=== PATIENT | male | born 1985 | race Caucasian/White ===

== ENCOUNTER 2020-10-07 11:08 | Emergency (ER) | payer OTHER ==
[2020-10-07] MEDS ORDERED: ASPIRIN 81 MG CHEWABLE TABLET ONE (13:04)
[2020-10-07 13:13] LABS: Absolute Lymphocytes (CBC) 1.4 K/uL (0.7-4.9); Basophils % 0.6 % (0-1.3); Hematocrit 43.8 % (39.6-49.0); Lymphocytes % 14.9 % (15.3-44.8); MPV 7.8 fL (7.6-11.3); RBC Red Blood Cell Count 5.07 M/uL (4.33-5.43)
[2020-10-07 13:17] LABS: Protime INR 0.98
--- NOTE | 2020-10-07 13:34 | RAD REPORT ---
EXAM DESCRIPTION: Nelda Single View10/07/2020 1:28 pm CLINICAL HISTORY: Chest pain COMPARISON: none FINDINGS: The lungs appear clear of acute infiltrate. The heart is normal size IMPRESSION: No acute abnormalities displayed
[2020-10-07 13:38] LABS: ALT/SGPT 77 U/L (12-78); AST/SGOT 27 U/L (15-37); Alkaline Phosphatase 66 U/L (45-117); BUN Blood Urea Nitrogen 15 mg/dL (7-18); Bicarbonate 25 mmol/L (21-32); Bilirubin Direct < 0.1 mg/dL (0-0.2); Bilirubin Total 0.3 mg/dL (0.2-1.0); Glucose Level 109 mg/dL (74-106); Magnesium 2.2 mg/dL (1.8-2.4); NT PRO-BNP 33 pg/mL (<125); Potassium 4.5 mmol/L (3.5-5.1); Protein, Total 7.5 g/dL (6.4-8.2); Sodium Level 140 mmol/L (136-145); Troponin (Emerg Dept Use Only) < 0.02 ng/mL (0.0-0.045)
--- NOTE | 2020-10-07 17:53 | ER ---
Nurse's Notes [facility] Name: Kendall Galarza Age: 35 yrs Sex: Male : 1985 Arrival Date: 10/07/2020 Time: 11:09 Bed 20 Private MD: Diagnosis: Chest pain, unspecified;Other chest pain Presentation: 10/07 11:17 Chief complaint: Patient states: chest tightness and tingling in left shoulder, started iw yesterday, worse today. Coronavirus screen: At this time, the client does not indicate any symptoms associated with coronavirus-19. Ebola Screen: Patient negative for fever greater than or equal to 101.5 degrees Fahrenheit, and additional compatible Ebola Virus Disease symptoms Patient denies exposure to infectious person. Patient denies travel to an Ebola-affected area in the 21 days before illness onset. No symptoms or risks identified at this time. Initial Sepsis Screen: Does the patient meet any 2 criteria? No. Patient's initial sepsis screen is negative. Does the patient have a suspected source of infection? No. Patient's initial sepsis screen is negative. Risk Assessment: Do you want to hurt yourself or someone else? Patient reports no desire to harm self or others. Onset of symptoms was October 06, 2020. 11:17 Method Of Arrival: Ambulatory iw 11:17 Acuity: TERESA 3 iw Historical: - Allergies: 11:19 PENICILLINS; iw - Home Meds: 11:19 None [Active]; iw - PMHx: 11:19 None; iw - PSHx: 11:19 None; iw - Immunization history:: Adult Immunizations. - Social history:: Smoking status: Patient reports the use of cigarette tobacco products, smokes one pack cigarettes per day. Patient uses alcohol, weekly. Patient/guardian denies using street drugs. Screenin:45 Abuse screen: Denies threats or abuse. Denies injuries from another. Nutritional zb screening: No deficits noted. Tuberculosis screening: No symptoms or risk factors identified. Fall Risk None identified. Assessment: 12:45 Also complains of no other symptoms. General: Appears in no apparent distress. zb comfortable, Behavior is calm, cooperative, appropriate for age, Denies fever, feeling ill, chills. Pain: Complains of pain in xyphoid area and mid-sternal area pt reported some tingling to the left side of arm Pain currently is 4 out of 10 on a pain scale. Quality of pain is described as pressure, Pain began 1 day ago. Is continuous. Neuro: Level of Consciousness is awake, alert, obeys commands, Oriented to person, place, time. Cardiovascular: Reports chest pain, fatigue, some SOB Denies diaphoresis, lightheadedness, nausea, palpitations, Heart tones S1 S2 present Capillary refill < 3 seconds in bilateral fingers Patient's skin is warm and dry. Pulses are all present. Respiratory: Airway is patent Respiratory effort is even, unlabored, Respiratory pattern is regular, symmetrical. GI: Abdomen is round non-distended. : No signs and/or symptoms were reported regarding the genitourinary system. EENT: Derm: Skin is intact, is healthy with good turgor, Skin is dry, Skin is pink, warm \T\ dry. normal, Skin temperature is warm. Musculoskeletal: Circulation, motion, and sensation intact. Capillary refill < 3 seconds, in bilateral fingers. Range of motion: intact in all extremities. 13:45 Reassessment: Patient appears in no apparent distress at this time. Patient and/or zb family updated on plan of care and expected duration. Pain level reassessed. Patient is alert, oriented x 3, equal unlabored respirations, skin warm/dry/pink. pt up ad nicole. pain appears to be decreased. 14:45 Reassessment: Patient appears in no apparent distress at this time. Patient and/or zb family updated on plan of care and expected duration. Pain level reassessed. Patient is alert, oriented x 3, equal unlabored respirations, skin warm/dry/pink. pt in bed, relaxed. 15:45 Reassessment: Patient appears in no apparent distress at this time. Patient and/or zb family updated on plan of care and expected duration. Pain level reassessed. Patient is alert, oriented x 3, equal unlabored respirations, skin warm/dry/pink. pt looked relaxed, in bed. no c/o at this time . 16:53 Reassessment: Patient appears in no apparent distress at this time. Patient and/or zb family updated on plan of care and expected duration. Pain level reassessed. Patient is alert, oriented x 3, equal unlabored respirations, skin warm/dry/pink. pt states he is getting hungry. states he is ready to go home. 17:50 Reassessment: Patient appears in no apparent distress at this time. Patient and/or zb family updated on plan of care and expected duration. Pain level reassessed. Patient is alert, oriented x 3, equal unlabored respirations, skin warm/dry/pink. pt educated on discharge, given water and food, IV removed. even and steady gate upon discharge. Vital Signs: 11:17 BP 172 / 97; Pulse 98; Resp 16 S; Temp 99.3; Pulse Ox 98% on R/A; Weight 129.27 kg; iw Height 6 ft. 0 in. (182.88 cm); Pain 7/10; 12:00 BP 134 / 88; Pulse 80; Resp 17; Pulse Ox 97% on R/A; tw2 13:00 BP 133 / 92; Pulse 73; Resp 17; Pulse Ox 97% on R/A; tw2 14:00 BP 127 / 77; Pulse 77; Resp 17; Pulse Ox 97% on R/A; tw2 15:00 BP 124 / 81; Pulse 64; Resp 17; Pulse Ox 99% on R/A; tw2 16:00 BP 114 / 61; Pulse 65; Resp 17; Pulse Ox 99% on R/A; tw2 17:00 BP 128 / 83; Pulse 62; Resp 17; Pulse Ox 100% on R/A; tw2 18:00 BP 147 / 83; Pulse 61; Resp 17; Pulse Ox 100% on R/A; tw2 11:17 Body Mass Index 38.65 (129.27 kg, 182.88 cm) iw ED Course: 11:09 Patient arrived in ED. ag5 11:18 Triage completed. iw 11:19 Arm band placed on. iw 11:24 EKG done, by ED staff, reviewed by Dre Thayer MD. sv 12:14 Dre Thayer MD is Attending Physician. kdr 12:44 Hanna Gold RN is Primary Nurse. zb 12:45 Patient has correct armband on for positive identification. medical psychotherapist on. Pulse zb ox on. NIBP on. 12:45 No provider procedures requiring assistance completed. Missed attempt(s): 20 gauge in zb left antecubital area. Inserted saline lock: 20 gauge in right antecubital area, using aseptic technique. Patient maintains SpO2 saturation greater than 95% on room air. 13:28 XRAY Chest (1 view) In Process Unspecified. EDMS 18:16 IV discontinued, intact, bleeding controlled, No redness/swelling at site. Pressure zb dressing applied. Administered Medications: 12:50 Drug: Aspirin Chewable Tablet 324 mg Route: PO; zb 13:30 Follow up: Response: No adverse reaction; Pain is decreased zb 18:13 Follow up: Response: No adverse reaction zb 18:02 Drug: SOLU-Medrol 125 mg Route: IVP; Site: right antecubital; zb 18:13 Follow up: Response: No adverse reaction zb 18:02 Drug: Pepcid 20 mg Route: PO; zb 18:13 Follow up: Response: No adverse reaction zb 18:03 Drug: TORadol - Ketorolac 15 mg Route: IVP; Site: right antecubital; zb 18:13 Follow up: Response: No adverse reaction zb Outcome: 17:53 Discharge ordered by . kdr 18:15 Discharged to home ambulatory. zb 18:15 Condition: stable 18:15 Discharge instructions given to patient, Instructed on discharge instructions, follow up and referral plans. medication usage, Demonstrated understanding of instructions, follow-up care, medications, Prescriptions given X 3. 18:17 Patient left the ED. zb Signatures: Dispatcher [employer] Brianna Sethi, RN Dre Cali MD MD kdr Williams, Irene, RN RN iw Wise, Tara, RN RN tw2 Gaskin, Ajare Hanna Salinas RN RN zyasir
--- NOTE | 2020-10-07 17:53 | EDPHYS ---
Physician Documentation [facility] Name: Kendall Galarza Age: 35 yrs Sex: Male : 1985 Arrival Date: 10/07/2020 Time: 11:09 Bed 20 Private MD: ED Physician Dre Thayer HPI: 10/08 07:10 This 35 yrs old Male presents to ER via Ambulatory with complaints of Chest kdr Pain. 07:10 The patient or guardian reports chest pain that is located primarily in the anterior kdr chest wall, left. The pain radiates to the left shoulder. Associated signs and symptoms: The patient has no apparent associated signs or symptoms. The chest pain is described as aching, a pressure. Duration: The patient or guardian reports a single episode, that is still ongoing, Wax and wanes but has not resolved at any time since onset. Modifying factors: The symptoms are alleviated by nothing. the symptoms are aggravated by nothing. Severity of pain: At its worst the pain was moderate in the emergency department the pain has improved mildly. The patient has not experienced similar symptoms in the past. The patient has not recently seen a physician. Historical: - Allergies: 10/07 11:19 PENICILLINS; iw - Home Meds: 11:19 None [Active]; iw - PMHx: 11:19 None; iw - PSHx: 11:19 None; iw - Immunization history:: Adult Immunizations. - Social history:: Smoking status: Patient reports the use of cigarette tobacco products, smokes one pack cigarettes per day. Patient uses alcohol, weekly. Patient/guardian denies using street drugs. ROS: 10/08 07:10 Constitutional: Negative for fever, chills, and weight loss, Eyes: Negative for injury, kdr pain, redness, and discharge, Neck: Negative for injury, pain, and swelling, Respiratory: Negative for shortness of breath, cough, wheezing, and pleuritic chest pain, Abdomen/GI: Negative for abdominal pain, nausea, vomiting, diarrhea, and constipation, Back: Negative for injury and pain, : Negative for injury, bleeding, discharge, and swelling, MS/Extremity: Negative for injury and deformity, Skin: Negative for injury, rash, and discoloration, Neuro: Negative for headache, weakness, numbness, tingling, and seizure activity. Psych: Negative for depression, anxiety, suicide ideation, homicidal ideation, and hallucinations, Allergy/Immunology: Negative for hives, rash, and allergies, Endocrine: Negative for neck swelling, polydipsia, polyuria, polyphagia, and marked weight changes, Hematologic/Lymphatic: Negative for swollen nodes, abnormal bleeding, and unusual bruising. Cardiovascular: Positive for Exam: 10/07 12:14 ECG was reviewed by the Attending Physician. kdr 10/08 13:35 Constitutional: This is a well developed, well nourished patient who is awake, alert, kdr and in no acute distress. Head/Face: Normocephalic, atraumatic. Eyes: Pupils equal round and reactive to light, extra-ocular motions intact. Lids and lashes normal. Conjunctiva and sclera are non-icteric and not injected. Cornea within normal limits. Periorbital areas with no swelling, redness, or edema. Neck: Trachea midline, no thyromegaly or masses palpated, and no cervical lymphadenopathy. Supple, full range of motion without nuchal rigidity, or vertebral point tenderness. No Meningismus. Chest/axilla: Normal chest wall appearance and motion. Nontender with no deformity. No lesions are appreciated. Cardiovascular: Regular rate and rhythm with a normal S1 and S2. No gallops, murmurs, or rubs. Normal PMI, no JVD. No pulse deficits. Respiratory: Lungs have equal breath sounds bilaterally, clear to auscultation and percussion. No rales, rhonchi or wheezes noted. No increased work of breathing, no retractions or nasal flaring. Abdomen/GI: Soft, non-tender, with normal bowel sounds. No distension or tympany. No guarding or rebound. No evidence of tenderness throughout. Back: No spinal tenderness. No costovertebral tenderness. Full range of motion. Skin: Warm, dry with normal turgor. Normal color with no rashes, no lesions, and no evidence of cellulitis. MS/ Extremity: Pulses equal, no cyanosis. Neurovascular intact. Full, normal range of motion. Neuro: Awake and alert, GCS 15, oriented to person, place, time, and situation. Cranial nerves II-XII grossly intact. Motor strength 5/5 in all extremities. Sensory grossly intact. Cerebellar exam normal. Normal gait. Psych: Awake, alert, with orientation to person, place and time. Behavior, mood, and affect are within normal limits. Vital Signs: 10/07 11:17 BP 172 / 97; Pulse 98; Resp 16 S; Temp 99.3; Pulse Ox 98% on R/A; Weight 129.27 kg; iw Height 6 ft. 0 in. (182.88 cm); Pain 7/10; 12:00 BP 134 / 88; Pulse 80; Resp 17; Pulse Ox 97% on R/A; tw2 13:00 BP 133 / 92; Pulse 73; Resp 17; Pulse Ox 97% on R/A; tw2 14:00 BP 127 / 77; Pulse 77; Resp 17; Pulse Ox 97% on R/A; tw2 15:00 BP 124 / 81; Pulse 64; Resp 17; Pulse Ox 99% on R/A; tw2 16:00 BP 114 / 61; Pulse 65; Resp 17; Pulse Ox 99% on R/A; tw2 17:00 BP 128 / 83; Pulse 62; Resp 17; Pulse Ox 100% on R/A; tw2 18:00 BP 147 / 83; Pulse 61; Resp 17; Pulse Ox 100% on R/A; tw2 11:17 Body Mass Index 38.65 (129.27 kg, 182.88 cm) iw MDM: 17:53 Patient medically screened. kdr 10/08 13:35 Data reviewed: vital signs, nurses notes, lab test result(s), radiologic studies. kdr Counseling: I had a detailed discussion with the patient and/or guardian regarding: the historical points, exam findings, and any diagnostic results supporting the discharge/admit diagnosis, lab results, radiology results, the need for outpatient follow up. 10/07 12:38 Order name: Basic Metabolic Panel; Complete Time: 14:42 kdr 10/07 12:38 Order name: CBC with Diff; Complete Time: 14:43 kdr 10/07 12:38 Order name: LFT's; Complete Time: 14:43 kdr 10/07 12:38 Order name: Magnesium; Complete Time: 14:43 kdr 10/07 12:38 Order name: NT PRO-BNP; Complete Time: 14:43 kdr 10/07 12:38 Order name: PT-INR; Complete Time: 14:43 kdr 10/07 12:38 Order name: Troponin (emerg Dept Use Only); Complete Time: 14:43 kdr 10/07 12:38 Order name: XRAY Chest (1 view); Complete Time: 14:43 kdr 10/07 12:38 Order name: EKG; Complete Time: 12:39 kdr 10/07 14:42 Order name: Troponin (emerg Dept Use Only); Complete Time: 17:32 kdr 10/07 12:38 Order name: Cardiac monitoring; Complete Time: 12:44 kdr 10/07 12:38 Order name: EKG - Nurse/Tech; Complete Time: 12:44 kdr 10/07 12:38 Order name: IV Saline Lock; Complete Time: 13:09 kdr 10/07 12:38 Order name: Labs collected and sent; Complete Time: 13:09 kdr 10/07 12:38 Order name: O2 Per Protocol; Complete Time: 12:44 kdr 10/07 12:38 Order name: O2 Sat Monitoring; Complete Time: 12:44 kdr EC/22 12:14 Rate is 92 beats/min. Rhythm is regular, Sinus Rhythm with No ectopy. QRS Harrison is kdr Normal. AR interval is normal. QRS interval is normal. QT interval is normal. Clinical impression: NSR w/ Non-specific ST/T Changes. Administered Medications: 12:50 Drug: Aspirin Chewable Tablet 324 mg Route: PO; zb 13:30 Follow up: Response: No adverse reaction; Pain is decreased zb 18:13 Follow up: Response: No adverse reaction zb 18:02 Drug: SOLU-Medrol 125 mg Route: IVP; Site: right antecubital; zb 18:13 Follow up: Response: No adverse reaction zb 18:02 Drug: Pepcid 20 mg Route: PO; zb 18:13 Follow up: Response: No adverse reaction zb 18:03 Drug: TORadol - Ketorolac 15 mg Route: IVP; Site: right antecubital; zb 18:13 Follow up: Response: No adverse reaction zb Disposition: 10/07/20 17:53 Discharged to Home. Impression: Chest pain, unspecified, Other chest pain. - Condition is Stable. - Discharge Instructions: Chest Wall Pain, [id number], Nonspecific Chest Pain, [id number]. - Prescriptions for Ibuprofen 800 mg Oral Tablet - take 1 tablet by ORAL route every 8 hours As needed take with food; 30 tablet. Pepcid 20 mg Oral Tablet - take 1 tablet by ORAL route every 12 hours for 5 days; 10 tablet. Medrol (Ochoa) 4 mg Oral Tablets, Dose Pack - take 1 tablet by ORAL route as directed - follow package instructions; 1 packet. - Medication Reconciliation Form, Thank You Letter, Work release form form. - Follow up: Private Physician; When: 2 - 3 days; Reason: If symptoms return, Further diagnostic work-up, Recheck today's complaints, Continuance of care, Re-evaluation by your physician. - Problem is new. - Symptoms have improved. Signatures: Dispatcher [employer] EDMS Dre Thayer MD MD kdr Williams, Irene, RN RN iw Hanna Gold RN RN zyasir Corrections: (The following items were deleted from the chart) 18:17 17:53 10/07/2020 17:53 Discharged to Home. Impression: Chest pain, unspecified; Other zb chest pain. Condition is Stable. Forms are Medication Reconciliation Form, Thank You Letter, Antibiotic Education, Prescription Opioid Use. Follow up: Private Physician; When: 2 - 3 days; Reason: If symptoms return, Further diagnostic work-up, Recheck today's complaints, Continuance of care, Re-evaluation by your physician. Problem is new. Symptoms have improved. kdr
[2020-10-07] MEDS ORDERED: METHYLPREDNISOLONE 125 MG INJ ONE (18:13)
[2020-10-07] MEDS ORDERED: KETOROLAC 30 MG/ML INJ ONE (18:14)
[2020-10-07] MEDS ORDERED: FAMOTIDINE 20 MG TAB ONE (18:14)
[2020-10-08 10:32] VITALS: BP 172/97; TEMP 99.3; O2SAT 98
== END 2020-10-07 18:17 | disposition home or self-care (01) ==
LOC: ER 11:08
DX: R07.89 Other chest pain (principal); F17.210 Nicotine dependence, cigarettes, uncomplicated; Z88.0 Allergy status to penicillin
CPT/HCPCS: 93005; 85025; 80048; 36415; 83735; 85610; 80076; 84484 ×2; 83880; 71045; 96375; 96374; 99285; J2930